=== PATIENT | born 1985 | race Caucasian/White ===

== ENCOUNTER 2024-09-19 11:56 | Outpatient (REF) | payer OTHER, SELFPAY ==
--- NOTE | 2024-09-19 15:40 | PAPFT_PTH ---
PATIENT: Thalia Corley LOC: [facility] U#:[id number] AGE/SX: 39/U ROOM: RE09/19/[address]: Nasreen Ramesh : 1985 BED: DIS: 09/19/2024 SPEC #: [id number] RECD: 09/20/24 15:44 STATUS: VON REZana #: [id number] JUANA: 09/19/24 15:[address]: Nasreen Ramesh DEPT: [facility] Cytology RECD BY: Wendy Peralta Tissues: 1 - CX/ENDOCX FOR PAP SMEARS Procedures: PAP THIN PREP/[facility] Screening HPV DNA PROBE Comments: [id number] (HPV 16 & 18/45)
== END 2024-09-19 11:57 | disposition home or self-care (01) ==
LOC: NCHCN 11:56
PROVIDERS: PCP Family Medicine; Visit Provider Family Medicine
DX: Z12.4 Encounter for screening for malignant neoplasm of cervix (principal)
CPT/HCPCS: 88142; 87624

== ENCOUNTER 2024-09-19 22:28 | Outpatient (REF) | payer OTHER, SELFPAY ==
[2024-09-19 22:58] LABS: Calculated LDL 112 mg/dL; Cholesterol 195 mg/dL; HDL Cholesterol 57 mg/dL; Triglyceride 131 mg/dL
== END 2024-09-19 22:29 | disposition home or self-care (01) ==
LOC: NCHCN 22:28
PROVIDERS: Physical Medicine & Rehabilitation; Visit Provider Family Medicine
DX: Z13.220 Encounter for screening for lipoid disorders (principal)
CPT/HCPCS: 80061

== ENCOUNTER 2025-09-18 18:41 | Outpatient (REF) | payer OTHER, SELFPAY ==
[2025-09-18 18:30] LABS: Anion Gap 8.2 mmol/L; BUN 11 mg/dL; CO2 24.8 mmol/L; Calcium 9.5 mg/dL; Chloride 106 mmol/L; Glucose 91 mg/dL; Potassium 4.6 mmol/L; Sodium 139 mmol/L
== END 2025-09-18 18:42 | disposition home or self-care (01) ==
LOC: NCHCN 18:41
PROVIDERS: PCP Family Medicine; Visit Provider Family Medicine
DX: N39.3 Stress incontinence (female) (male) (principal)
CPT/HCPCS: 80048